=== PATIENT | male | born 1965 | race Caucasian/White ===

== ENCOUNTER 2017-06-15 12:43 | Emergency (ER) | payer BC ==
[2017-06-15] MEDS ORDERED: ONDANSETRON HCL IV 4 MG/2 ML VIAL IVP ONE (12:52)
[2017-06-15] MEDS ORDERED: MECLIZINE 25 MG TABLET PO ONE (12:52)
[2017-06-15] MEDS ORDERED: 0.9 % SODIUM CHLORIDE 1,000 ML BAG IV ONE (12:52)
--- NOTE | 2017-06-15 12:58 | Emergency Department Record ---
History of Present Illness - General Chief Complaint: Dizziness Stated Complaint: NAUSEA Time Seen by Provider: 06/15/17 12:51 Source: Patient, Family Mode of Arrival: EMS Limitations: No limitations - History of Present Illness Initial Comments: 52 yo male presents with dizziness and room spinning that started at 10:30am. The onset was while walking. No headache, no vision or speech changes. No upper or lower coordination changes. No weakness or the upper or lower extremities. He has a room spinning sensation with turning of the head. It resolves if still and focuses on an object. No headache. He has a history of vertigo in the past. He has had an MRI one year ago for headaches that he reports was negative. PCP Dr Coreas. Complaint: Dizziness -: Hour(s) (2.5) Description: Lightheadedness, Nausea, "Room spinning" History of Same: Yes History of Trauma: No Severity: Moderate Improves With: Remaining still Associated Symptoms: Loss of appetite - [place] Coma Scale Eye Response: (4) Open spontaneously Motor Response: (6) Obeys commands Verbal Response: (5) Oriented [place] Total: 15 - Symptoms of Stroke Symptom Onset Unknown: Yes Symptoms of stroke: Dizziness - Related Data Previous Rx's Medication Instructions Recorded Meclizine HCl [Antivert] 25 mg PO Q8H #20 tablet 06/15/17 Ondansetron [Zofran Odt] 4 mg PO Q8H #20 tab.rapdis 06/15/17 Allergies Allergy/AdvReac Type Severity Reaction Status Date / Time No Known Drug Allergies Allergy Verified 06/15/17 12:53 Review of Systems Constitutional: Denies: Chills, Fever, Malaise, Weakness Eyes: Denies: Eye discharge, Eye pain, Photophobia, Vision change ENT: Denies: Congestion, Throat pain Respiratory: Denies: Cough, Dyspnea Cardiovascular: Denies: Chest pain, Syncope Endocrine: Denies: Fatigue Gastrointestinal: Reports: Nausea. Denies: Abdominal pain, Diarrhea, Vomiting Genitourinary: Denies: Dysuria, Frequency, Hematuria Musculoskeletal: Denies: Arthralgia, Back pain, Joint swelling, Myalgia Skin: Denies: Bruising, Change in color Neurological: Reports: Vertigo. Denies: Abnormal gait, Confusion, Headache, Numbness, Paresthesias, Seizure, Tingling, Tremors, Weakness Psychiatric: Denies: Anxiety Hematological/Lymphatic: Denies: Blood Clots, Easy bleeding, Easy bruising, Swollen glands Physical Exam - General General Appearance: Alert, Oriented x3, Cooperative, No acute distress Limitations: No limitations - Head Head exam: Normal inspection - Eye Eye exam: Normal appearance, PERRL, EOMI, Nystagmus (rapid component to the left gaze). negative: Conjunctival injection, Periorbital swelling, Periorbital tenderness Pupils: Normal accommodation. negative: Irregular, Unequal - ENT ENT exam: Normal exam, Mucous membranes moist Ear exam: Normal external inspection Nasal Exam: Normal inspection Mouth exam: Normal external inspection - Neck Neck exam: Normal inspection, Full ROM, Other (No bruits). negative: Lymphadenopathy, Tenderness - Respiratory Respiratory exam: Normal lung sounds bilaterally. negative: Respiratory distress - Cardiovascular Cardiovascular Exam: Regular rate, Normal rhythm, Normal heart sounds Peripheral Pulses: 2+: Radial (R), Radial (L) - GI/Abdominal GI/Abdominal exam: Soft. negative: Tenderness - Rectal Rectal exam: Deferred - exam: Deferred - Extremities Extremities exam: Normal inspection, Full ROM, Normal capillary refill. negative: Tenderness - Back Back exam: Reports: Normal inspection, Full ROM. Denies: Muscle spasm, Rash noted, Tenderness - Neurological Neurological exam: Alert, CN II-XII intact, Normal gait, Oriented X3, Reflexes normal, Other (Normal FTN, no dysmetria, No PND at 10 seconds). negative: Altered, Motor sensory deficit - Psychiatric Psychiatric exam: Normal affect, Normal mood. negative: Agitated, Anxious, Depressed - Skin Skin exam: Dry, Intact, Normal color, Warm Course - Reevaluation(s) Reevaluation #1: The patient was seen and examined He has symptoms consistent with peripheral vertigo with nystagmus, fatigues if still and focused, brief in intensity and reproduces with head movement 06/15/17 12:58 Reevaluation #2: EKG 13:01 NSR, rate 59, intervals normal, axis normal, ST normal 06/15/17 13:07 Reevaluation #3: 01/08/15 normal MRI of the brain 06/15/17 13:18 Reevaluation #4: The patient is doing well He is ready to go with controlled symptoms We discussed home care, follow up and reasons for immediately recheck 06/15/17 14:16 Medical Decision Making - Lab Data Result diagrams: 06/15/17 13:23 06/15/17 13:23 Disposition Disposition: Discharge Clinical Impression: Vertigo Disposition: Home, Self-Care Condition: (1) Good Instructions: Vertigo (ED) Additional Instructions: Return immediately if worse, any new symptoms or concerns Take Anitvert and Zofran as directed for symptomatic treatment Call your doctor tomorrow for close follow up. Prescriptions: Meclizine HCl [Antivert] 25 mg PO Q8H #20 tablet Ondansetron [Zofran Odt] 4 mg PO Q8H #20 tab.rapdis Forms: Patient Portal Access Time of Disposition: 14:18 Quality - Quality Measures Quality Measures: N/A - Blood Pressure Screening View Details: Yes Blood Pressure Classification: Pre-Hypertensive BP Reading Systolic Measurement: 130 Diastolic Measurement: 76 Screening for High Blood Pressure: < Pre-Hypertensive BP, F/U Documented > [ [id number]] Pre-Hypertensive Follow-up Interventions: Referral to alternative/primary care provider.
[2017-06-15 13:31] LABS: HEMATOCRIT 43.3 % (42.0-52.0); HEMOGLOBIN 15.5 gm/dl (14.0-18.0); MEAN CELL VOLUME 84.7 fl (81-97); MEAN CORPUSCULAR HEMOGLOBIN 30.3 pg (27-33); MEAN CORPUSCULAR HGB CONC 35.8 g/dl (32-36); MEAN PLATELET VOLUME 9.2 fl (7.4-10.4); PLATELET COUNT 295 K/uL (130-400); RED BLOOD COUNT 5.11 M/uL (4.40-5.70); RED CELL DISTRIBUTION WIDTH 12.3 % (11.5-14.5); WHITE BLOOD COUNT W/O DIFF 10.6 K/uL (4.2-12.2)
[2017-06-15 13:42] LABS: ALB/GLOB RATIO 1.4 (1.1-1.8); ALBUMIN 4.3 gm/dL (3.5-5.0); ALKALINE PHOSPHATASE 90 U/L (38-126); ALT/SGPT 51 U/L (21-72); ANION GAP 8.6 (7-16); AST/SGOT 26 U/L (17-59); BILIRUBIN,TOTAL 1.16 mg/dL (0.2-1.3); BLOOD UREA NITROGEN 14 mg/dL (9-20); CARBON DIOXIDE 26.4 mmol/L (22-30); CREATININE 0.7 mg/dL (0.66-1.25); EST GLOMERULAR FILTRATION RATE > 60 ml/min; GLUCOSE,RANDOM 120 mg/dL (70-110); TOTAL PROTEIN 7.4 gm/dL (6.3-8.2)
[2017-06-15 13:53] LABS: PLATELET ESTIMATE NORMAL (NORMAL)
== END 2017-06-15 14:33 | disposition home or self-care (01) ==
LOC: ER 12:43
DX: R42 Dizziness and giddiness (principal); R11.0 Nausea
CPT/HCPCS: 99284 ×2; 96374; 83735; 80053; 85027; 93005; 93010; J2405; J7030